=== PATIENT | female | born 1965 | race African-American/Black ===

== ENCOUNTER 2018-10-19 13:48 | Inpatient (IN) | payer MEDICARE, OTHER ==
[~2018-10-19] VITALS: Ht 162.6 cm; Wt 70.3 kg
[2018-10-19] MEDS ORDERED: LAMO25TA5 PO (14:00)
[2018-10-19] MEDS ORDERED: PALI117D IM (14:03)
[2018-10-19 14:39] LABS: BASOPHILS # (AUTO) 0.1 K/uL (0.0-8.0); BASOPHILS % (AUTO) 0.9 % (0.0-2.0); EOSINOPHILS # (AUTO) 0.1 K/uL (0.0-0.7); EOSINOPHILS % (AUTO) 1.7 % (0.0-7.0); HEMOGLOBIN 12.6 g/dL (10.9-14.3); LYMPHOCYTES % (AUTO) 32.8 % (20.5-51.5); MEAN CORPUSCULAR HEMOGLOBIN 30.4 uug (24.7-32.8); MEAN CORPUSCULAR HGB CONC 33 g/dL (32.3-35.6); MEAN CORPUSCULAR VOLUME 91.6 fL (75.5-95.3); MONOCYTES # (AUTO) 0.5 K/uL (2.0-10.0); MONOCYTES % (AUTO) 7.8 % (0.0-11.0); NEUTROPHILS # (AUTO) 3.4 K/uL (1.8-8.9); NEUTROPHILS % (AUTO) 56.8 % (38.5-71.5); PLATELET COUNT (AUTO) 232 K/uL (179-408); RED BLOOD CELL COUNT(AUTO) 4.15 MIL/uL (3.63-4.92)
[2018-10-19] MEDS ORDERED: IBUPROFEN 600 MG TABLET PO ONE (14:45)
[2018-10-19 14:50] LABS: CARBON DIOXIDE 28 mmol/L (21-32); CHLORIDE 111 mmol/L (98-107); CREATININE 0.9 mg/dL (0.6-1.3); GLUCOSE 93 mg/dL (74-106); POTASSIUM 4.3 mmol/L (3.5-5.1); UREA NITROGEN, BLOOD 9 mg/dL (7-18)
[2018-10-19 14:51] LABS: ETHANOL < 3 MG/DL (0-0)
--- NOTE | 2018-10-19 14:54 | NUR ---
PATIENT IS AWAKE AND ALERT. STATES SHE FEELS "SAD" LATELY BUT DENIES SI.
[2018-10-19 14:57] LABS: ALANINE AMINOTRANSFERASE 47 U/L (14-59); ALKALINE PHOSPHATASE 67 U/L (50-136); ASPARTATE AMINOTRANSFERASE 13 U/L (15-37); BILIRUBIN,DIRECT 0.1 mg/dL (0.0-0.2); BILIRUBIN,TOTAL 0.4 mg/dL (0.2-1.0); TOTAL PROTEIN, SERUM 6.5 g/dL (6.4-8.2)
[2018-10-19 14:58] LABS: ACETAMINOPHEN < 2.0 ug/mL (10-30)
--- NOTE | 2018-10-19 15:11 | NUR ---
Pt is medically cleared by Dr Vásquez.
--- NOTE | 2018-10-19 15:12 | NUR ---
placed a call to [facility] team, Brett Guevara LCSW will be here in 1 hour for psych eval.
[2018-10-19 15:21] LABS: THYROID STIMULATING HORMONE 0.998 mIU/mL (0.358-3.740)
[2018-10-19] MEDS ORDERED: IBUPROFEN 600 MG TABLET ONE (15:24)
--- NOTE | 2018-10-19 16:30 | NUR ---
Brett Guevara at bedside for eval.
--- NOTE | 2018-10-19 17:31 | NUR ---
PATIENT AWARE OF PENDING ADMISSION TO [facility]. REPORT GIVEN TO [facility] NURSE. PATIENT HAD 2 LARGE COOKIES AND DINNER WAS ORDERED FOR HER.
[2018-10-19 18:00] VITALS: BP 145/86
--- NOTE | 2018-10-19 18:05 | NUR ---
Gps/Felt Washing Machine Tender- Admitted a voluntary patient from ER via wheel chair. Alert oriented x4, verbalized feeling of being depressed and hopelessness. denies any S.I/H.I. Claimed she's supposed to received Invega injections every month and she think, that contributed to her present situation. Claimed she has a Niece who is her family support. 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 Complained of headache level 6/10 , take motriim at home to relieved her h/a. Routine admission care done.
[2018-10-19] MEDS ORDERED: TEMAZEPAM 7.5 MG CAPSULE PO PRN (22:00)
[2018-10-19] MEDS ORDERED: BLOOD SUGAR DIAGNOSTIC 1 EACH STRIP VI ONE (22:00)
[2018-10-19] MEDS ORDERED: ACETAMINOPHEN 325 MG TABLET PO PRN (22:00)
[2018-10-19] MEDS ORDERED: MAGNESIUM HYDROXIDE 30 ML LIQUID UDC PO PRN (22:00)
[2018-10-19] MEDS ORDERED: MAG HYDROX/AL HYDROX/SIMETH 30 ML LIQUID UDC PO PRN (22:00)
--- NOTE | 2018-10-19 23:15 | NUR ---
PATIENT'S NIECE WHO IS CONCERNED OF HER DECLINING MENTAL HEALTH. SHE HAS MISSED THE LAST 2 MONTHS OF INVEG INJECTIONS SHE WITH HER PREVIOUS PSYCHIATRIST WHO IS NO LONGER ABLE TO SEE HER. PATIENT SAYS THAT SHE HAS HAD INCREASED DEPRESSION OVER THE PAST 3 WEEKS. SHE DENIES HAVING THOUGHTS OF HARMING HERSELF OR OTHERS AND HAS AND HAS NO PREVIOUS EPISODES OF SUICIDE ATTEMPTS. PATIENT WAS LAST ADMITTED TO A [facility] ONE YEAR AGO, WITH SIMILAR SYMPTOMS. PATIENT HAS HAD POOR APPETITE AND HAS BEEN SHOWERING ONLY ONCE EVERY 3 TO 4 DAYS. 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 PATIENT HAS SHOWERED UPON ARRIVAL TO UNIT AND HAS HAD A SNACK ALONG WITH JUICE AND WATER. PATIENT DENIES SI/HI WILL CONTINUE TO MONITOR.
[2018-10-20 07:14] LABS: BASOPHILS # (AUTO) 0.1 K/uL (0.0-8.0); BASOPHILS % (AUTO) 1.1 % (0.0-2.0); EOSINOPHILS # (AUTO) 0.2 K/uL (0.0-0.7); EOSINOPHILS % (AUTO) 2.4 % (0.0-7.0); HEMOGLOBIN 12.2 g/dL (10.9-14.3); LYMPHOCYTES # (AUTO) 2.8 K/uL (20.0-40.0); LYMPHOCYTES % (AUTO) 43.5 % (20.5-51.5); MEAN CORPUSCULAR HEMOGLOBIN 30.7 uug (24.7-32.8); MEAN CORPUSCULAR HGB CONC 34 g/dL (32.3-35.6); MEAN CORPUSCULAR VOLUME 90.5 fL (75.5-95.3); MONOCYTES # (AUTO) 0.4 K/uL (2.0-10.0); MONOCYTES % (AUTO) 6.7 % (0.0-11.0); NEUTROPHILS % (AUTO) 46.3 % (38.5-71.5); PLATELET COUNT (AUTO) 226 K/uL (179-408); RED BLOOD CELL COUNT(AUTO) 3.98 MIL/uL (3.63-4.92); WHITE BLOOD COUNT (AUTO) 6.5 K/uL (3.8-11.8)
[2018-10-20 07:21] LABS: BILIRUBIN,TOTAL 0.4 mg/dL (0.2-1.0); POTASSIUM 3.9 mmol/L (3.5-5.1); TOTAL PROTEIN, SERUM 6.1 g/dL (6.4-8.2)
[2018-10-20 07:53] VITALS: BP 138/99
[2018-10-20] MEDS: LORAZEPAM 0.5 MG TABLET PO PRN ×2 (09:21→17:11)
--- NOTE | 2018-10-20 13:59 | NUR ---
Initial Discharge Plan: Pt currently lives at home independently at [address] [place] [address]; [phone]. Pet pt, she would like to return home when she is ready for discharge. MACHO will speak with pt�s family [pt�s sister Temitope Meredith [phone]; pt�s niece Rina [phone]], and continue to collaborate with pt, family, and MD regarding appropriate discharge plans for this pt. MACHO will form a safe and proper discharge.
[2018-10-20 16:00] VITALS: BP 146/85
--- NOTE | 2018-10-20 17:31 | NUR ---
Gps/City Manager- Interacting with some of her selected peers. Had been in and out of the activity room . Verbalized feelings of being anxious, reassured psychiatrist to see her this pm. PRN ativan 0.5 mg 1 tab. verbalized less anxious .
[2018-10-20 20:20] VITALS: BP 112/57
[2018-10-20] MEDS: risperiDONE 1 MG TABLET PO SCH (21:00)
[2018-10-20] MEDS: TRAZODONE 50 MG TABLET PO SCH (21:00)
--- NOTE | 2018-10-21 06:00 | NUR ---
GPS: pt remains calm and cooperative. pt is compliant with medications and with care. pt slept 8.30 hours throughout the night. pt is awake and ambulating in hallway. pt appears depressed with flat affect. continue monitoring for safety.
[2018-10-21 08:02] VITALS: BP 139/82
[2018-10-21] MEDS: risperiDONE 1 MG TABLET PO SCH ×3 (08:15→21:02)
[2018-10-21] MEDS: LORAZEPAM 0.5 MG TABLET PO PRN (08:15)
[2018-10-21] MEDS: LAMOTRIGINE 25 MG TABLET PO SCH (08:15)
--- NOTE | 2018-10-21 11:17 | NUR ---
GPS: RECEIVED PATIENT AOX2-3, PATIENT HAS LOW ENERGY, AND POOR CONCENTRATION, DENIES SUICIDAL THOUGHTS BUT VERBALIZES THAT SHES HAVING PROBLEM IN GETTING A JOB, ABLE TO COLLECT URINE AND SENT TO LABS FOR UA, ABLE TO REDIRECT , PATIENT TOOK SHOWER THIS MORNING AND SEEN HAVING GOOD CONVERSATION WITH ANOTHER PATIENT
[2018-10-21 12:55] LABS: *BILIRUBIN,URIN NEGATIVE (NEGATIVE); *CLARITY,URINE CLEAR (CLEAR); *COLOR,URINE YELLOW (YELLOW); *KETONES,URINE NEGATIVE (NEGATIVE); *UROBILINOGEN,URINE 0.2 E.U./dl (NORMAL); LEUKOCYTE ESTERASE ,URINE NEGATIVE (NEGATIVE); NITRITE, URINE NEGATIVE (NEGATIVE); UGLUCOSE NEGATIVE (NEGATIVE)
[2018-10-21 12:57] LABS: *BLOOD, URINE NEGATIVE (NEGATIVE)
[2018-10-21 13:07] LABS: *AMPHETAMINE, URINE NEGATIVE (NEGATIVE); *BARBITURATE, URINE NEGATIVE (NEGATIVE); *CANNABINOID, URINE NEGATIVE (NEGATIVE); *COCCAINE, URINE NEGATIVE (NEGATIVE); *OPIATE, URINE NEGATIVE (NEGATIVE); *PHENCYCLIDINE SCREEN,URINE NEGATIVE (NEGATIVE)
[2018-10-21 16:37] VITALS: BP 137/88
--- NOTE | 2018-10-21 17:56 | NUR ---
GPS: visited by family, patient remains calm and cooperative
[2018-10-21 21:19] VITALS: BP 123/75
[2018-10-21] MEDS: TRAZODONE 50 MG TABLET PO SCH (21:54)
--- NOTE | 2018-10-21 22:30 | NUR ---
received to care, in tv room, talking on the phone. when she finished her calls, she was pleasant and appropriate. compliant with medications and staff direction. denied SI, but stated she still feels depressed. as of 2229, she appears to be asleep. no distress noted. will continue to monitor closely.
--- NOTE | 2018-10-22 06:10 | NUR ---
slept 7 hours. is now awake. no distress noted.
[2018-10-22 07:30] VITALS: BP 126/73
[2018-10-22] MEDS: LAMOTRIGINE 25 MG TABLET PO SCH (08:13)
[2018-10-22] MEDS: risperiDONE 1 MG TABLET PO SCH ×2 (08:13→12:10)
[2018-10-22 16:19] VITALS: BP 123/75
[2018-10-22] MEDS: BENZTROPINE MESYLATE 0.5 MG TABLET PO SCH (18:14)
[2018-10-22] MEDS: LORAZEPAM 0.5 MG TABLET PO PRN (18:14)
[2018-10-22 19:49] VITALS: BP 120/72
[2018-10-22] MEDS: risperiDONE 2 MG TABLET PO SCH (20:28)
[2018-10-22] MEDS: TRAZODONE 50 MG TABLET PO SCH (20:28)
--- NOTE | 2018-10-23 05:57 | NUR ---
Patient had uneventful night. Slept 8.5 hours so far. Patient still asleep at this time. No distress noted.
[2018-10-23 07:30] VITALS: BP 116/69
[2018-10-23] MEDS: risperiDONE 1 MG TABLET PO SCH ×2 (08:14→12:03)
[2018-10-23] MEDS: BENZTROPINE MESYLATE 0.5 MG TABLET PO SCH ×2 (08:14→16:10)
[2018-10-23] MEDS: LAMOTRIGINE 25 MG TABLET PO SCH (08:15)
--- NOTE | 2018-10-23 13:17 | NUR ---
gps: received patient aox4, compliant with medication, still bit anxious, able to redirect patient attention, seen by pschologist and visited by sister Temitope, valuables including gomez from hospital [facility] was reposses by patient and gave to her sister, all valuables are accounted for, patient remain calm and cooperative
[2018-10-23 16:18] VITALS: BP 100/66
[2018-10-23] MEDS: risperiDONE 2 MG TABLET PO SCH (20:05)
[2018-10-23] MEDS: TRAZODONE 50 MG TABLET PO SCH (20:05)
[2018-10-23 20:36] VITALS: BP 123/80
--- NOTE | 2018-10-23 22:00 | NUR ---
received to care, in her room, pleasant upon approach, compliant with medications and staff direction. denies SI, but still feels depressed. as of 2199, she remains awake. 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 encouraged to focus on getting better, for now. emotional support provided. will continue to monitor closely.
--- NOTE | 2018-10-24 01:00 | NUR ---
PRN restoril given at 0027, for insomnia. as of 010, she appears to be asleep. no distress noted.
--- NOTE | 2018-10-24 06:00 | NUR ---
slept 6 hours. continues to sleep. no distress noted.
[2018-10-24 07:30] VITALS: BP 124/67
[2018-10-24] MEDS: LAMOTRIGINE 25 MG TABLET PO SCH (08:08)
[2018-10-24] MEDS: risperiDONE 1 MG TABLET PO SCH ×2 (08:08→12:08)
[2018-10-24] MEDS: BENZTROPINE MESYLATE 0.5 MG TABLET PO SCH ×2 (08:08→16:24)
[2018-10-24] MEDS: LORAZEPAM 0.5 MG TABLET PO PRN (11:39)
--- NOTE | 2018-10-24 12:08 | NUR ---
UR Note: Leaf Sucker Operator provided clinical information to assigned Metal Flow Coordinator True at [facility] ( Ext. [phone]) Leaf Sucker Operator updated Metal Flow Coordinator verbally regarding clinicals, patients current mental status of depression, and psychotropic medications. SW awaiting call for authorization. Previous existing intake authorization received: Auth# [id number]
--- NOTE | 2018-10-24 12:11 | NUR ---
UR Note update: Senior Application Software Engineer received call Lisa at [facility] [employer] [facility] [[phone] ext. [phone]] stating that the case has been assigned to her and to provide her with he clinicals moving forward. SW left message and provided clinical information to new assigned Administrative Associate Lisa at [facility] [employer] [facility] [[phone] ext. [phone]]. SW awaiting call for authorization.
--- NOTE | 2018-10-24 14:22 | NUR ---
UR Note: Entry Examiner provided clinical information to assigned Power Equipment Technology Instructor Lisa at [facility] [[phone] ext. [phone]]. Entry Examiner updated Power Equipment Technology Instructor verbally regarding clinicals, patient receiving medications, and newly status of voluntary hold. MACHO awaiting call for authorization. Addendum: 10/24/18 at 1502 by MATTHEW DIAZ Updated Authorization number: [id number]
[2018-10-24 16:00] VITALS: BP 109/68
--- NOTE | 2018-10-24 17:35 | NUR ---
GPS: patient AOx4, seen interacting well with other patient and other staff, patient denies SI and Hi,still preoccupied of getting a job, compliant with medication , calm and cooperative
[2018-10-24] MEDS: risperiDONE 2 MG TABLET PO SCH (21:03)
[2018-10-24] MEDS: TRAZODONE 50 MG TABLET PO SCH (21:03)
[2018-10-24 21:18] VITALS: BP 133/70
--- NOTE | 2018-10-24 22:00 | NUR ---
received to care, pleasant and calm, upon approach, highly visible on unit. no interactions with peers, noted. compliant with medications, and staff direction. as of 2200, she appears to be asleep. no distress noted. will continue to monitor closely.
--- NOTE | 2018-10-25 06:00 | NUR ---
slept 7 hours. is now awake. no distress noted.
[2018-10-25 07:30] VITALS: BP 126/66
[2018-10-25] MEDS: risperiDONE 1 MG TABLET PO SCH ×2 (08:23→12:11)
[2018-10-25] MEDS: LAMOTRIGINE 25 MG TABLET PO SCH (08:23)
[2018-10-25] MEDS: BENZTROPINE MESYLATE 0.5 MG TABLET PO SCH ×2 (08:23→16:13)
[2018-10-25] MEDS: LORAZEPAM 0.5 MG TABLET PO PRN (11:29)
[2018-10-25 16:00] VITALS: BP 126/61
--- NOTE | 2018-10-25 17:39 | NUR ---
GPS: received patient AOx4, ambulatory , self care, , denies SI and HI, patient seen socialize with staff and with patient, participated with the activity, no distress noted
[2018-10-25] MEDS: TRAZODONE 50 MG TABLET PO SCH (22:09)
[2018-10-25] MEDS: risperiDONE 2 MG TABLET PO SCH (22:09)
[2018-10-25 22:30] VITALS: BP 122/70
--- NOTE | 2018-10-25 22:36 | NUR ---
Patient transferred by POST DOCTORAL FELLOW via wheelchair. Alert/oriented to person, name, place, and situation. Patient compliant with HS medication, denies suicide ideation or intent, denies homicidal ideation or intent. Report given to AYESHA Mera.
--- NOTE | 2018-10-26 06:25 | NUR ---
PT SHOWS NO SIGNS OF ACUTE DISTRESS. PT PLEASANT WHEN APPROACH. COMPLIANT WITH CARE. SAFETY AND COMFORT PROVIDED. WILL ENDORSE ACCORDINGLY TO INCOMING NURSE FOR CONTINUITY OF CARE.
--- NOTE | 2018-10-26 06:25 | NUR ---
Pt slept 8.3 hours. Pt request to go back to [facility] unit. charge nurse aware. Pt stable. Will endorse to dayshift nurse.
--- NOTE | 2018-10-26 08:00 | NUR ---
Pt. resting in bed alert oriented x4. Pt. is calm but appears anxious. Pt. asking when she will be transferred back to [facility]. Pt. states she likes it there better because her room is lonely on Med Surg Unit. Pt. denies any feelings of hurting self or others. Pt. denies any pain or discomfort. Pt. denies any SOB or difficulty breathing. Safety measures in place. Will continue to monitor pt.
[2018-10-26] MEDS: BENZTROPINE MESYLATE 0.5 MG TABLET PO SCH (08:10)
[2018-10-26] MEDS ORDERED: risperiDONE 2 MG TABLET PO SCH (09:00)
[2018-10-26] MEDS: LAMOTRIGINE 25 MG TABLET PO SCH (09:31)
--- NOTE | 2018-10-26 11:03 | NUR ---
UR note: Rn Perinatal provided clinical information to assigned Industrial Economist Lisa at [facility] [[phone] ext. [phone]]. Rn Perinatal updated Industrial Economist verbally regarding clinicals, medications, and updated doctor notes on patient mental health status and behaviors. Authorization number for October 25, 2018 : [id number]
--- NOTE | 2018-10-26 11:05 | NUR ---
Discharge note Patient will be discharged today back home [[address] [facility] [address]; [phone]]. Patient is alert and oriented x4, denies suicidal or homicidal ideation, and is aware and agreeable with discharge plans. Patient will be transported via Taxi back home today, aroun 2pm. Patient will continue to follow-up with her current Psychiatrist, Dr. Armando Conte MD [[address] [place] [address]; ] and has a follow up appointment set for Thursday November 01, 2018 at 9:00AM. The patient was provided with a list of [facility] -accepting Clinical Psychologists, Clinical Therapists, as well as Clinical Social Workers and Marriage and Family Therapists in her area; Andre Sow CHILD SUPPORT OFFICER [[phone]], [facility] [[phone]], [facility] [[phone]], Eunice Noel [[phone]], Porsha Ortiz [[phone]]. Patient was provided with outpatient mental health resources to [facility] Crisis Line , and the National Suicide Prevention Lifeline .
[2018-10-26 11:20] VITALS: BP 127/71
--- NOTE | 2018-10-26 13:37 | NUR ---
Pt. belongings list checked with patient at bedside. Pt. signed all paperwork. Pt. later states that she came up to unit with araceli BROWNSARINA purse. Looked for purse in contraband locker, in all areas of room, in drawers. Will continue to look for patient's purse.
[2018-10-26 15:26] VITALS: BP 124/71
--- NOTE | 2018-10-26 15:33 | NUR ---
Pt.'s dkny purse found and brought to pt. Pt. is calm sitting on bed alert oriented x4. Safety measures in place. Call light within reach. Will continue to monitor until discharge
--- NOTE | 2018-10-26 16:53 | NUR ---
pt. discharged home via taxi. Pt. in stable condition. All paper work signed, copied, and sent with patient.Pt. education and instructions provided. All belongings given back to pt. ID band removed.
== END 2018-10-26 17:00 | disposition home or self-care (01) | DRG 885 ==
LOC: ER 13:48 → GPS 17:28 → MEDSURG3 10-25 22:41 → GPSOV3 10-25 23:06
PROVIDERS: ADMIT Psychiatry & Neurology Psychiatry; ATTEND Nurse Practitioner Acute Care
DX: F31.5 Bipolar disorder, current episode depressed, severe, with psychotic features (principal); F50.9 Eating disorder, unspecified; E87.0 Hyperosmolality and hypernatremia; Z91.14 Patient's other noncompliance with medication regimen; R51 Headache; F41.9 Anxiety disorder, unspecified; Z79.899 Other long term (current) drug therapy
CPT/HCPCS: 36415; 70030-TC; 71045; 80307; 84443; 85025; 85730; 93005; A4663; G0480; G0480-TC